=== PATIENT | male | born 1985 | race Caucasian/White ===

== ENCOUNTER 2018-06-27 12:27 | Emergency (ER) | payer OTHER ==
[2018-06-27] MEDS ORDERED: NS 1,000 ML IV ONE (12:58)
--- NOTE | 2018-06-27 12:58 | EDPHY ---
H & P Stated Complaint: Bloating and feeling full after eating x 2 weeks Time Seen by Provider: 06/27/18 12:58 HPI/ROS: HPI CHIEF COMPLAINT: Bloating and postprandial fullness. HISTORY OF PRESENT ILLNESS: 33-year-old male, otherwise healthy without any significant medical history does not take any daily medications presents emergency room with 2 weeks of worsening postprandial fullness. Patient states every time he goes to eat he feels full. He also complains of burning sensation in his epigastric region that rises up into his throat through his chest. He denies vomiting, denies change in his stools. Denies black tarry stools. Denies blood in his stool. Denies fever. Denies chest pain or shortness of breath. This been going on for 2 weeks. No significant abdominal pain but gets full after eating. Past Medical History: Denies medical history Past Surgical History: Appendectomy Social History: Denies drugs alcohol tobacco. and daughter at bedside. Family History: Noncontributory ROS REVIEW OF SYSTEMS: 10 Systems were reviewed and negative with the exception of the elements mentioned in the history of present illness. Exam Constitutional nontoxic. No acute distress, triage nursing summary reviewed, vital signs reviewed, awake/alert. Eyes normal conjunctivae and sclera, EOMI, PERRLA. HENT normal inspection, atraumatic, moist mucus membranes, no epistaxis, neck supple/ no meningismus, no raccoon eyes. Respiratory clear to auscultation bilaterally, normal breath sounds, no respiratory distress, no wheezing. Cardiovascular rate normal, regular rhythm, no murmur, no edema, distal pulses normal. Gastrointestinal soft, non-tender, no rebound, no guarding, normal bowel sounds, no distension, no pulsatile mass. Genitourinary no CVA tenderness. Musculoskeletal no midline vertebral tenderness, full range of motion, no calf swelling, no tenderness of extremities, no meningismus, good pulses, neurovascularly intact. Skin pink, warm, & dry, no rash, skin atraumatic. Neurologic awake, alert and oriented x 3, AAOx3, moves all 4 extremities equally, motor intact, sensory intact, CN II-XII intact, normal cerebellar, normal vision, normal speech. Psychiatric normal mood/affect. Heme/Lymph/Immune no lymphadenopathy. Differential diagnosis includes but is not limited to and in no particular order : GERD, Peptic ulcer disease, gastritis, H pylori ,Bowel obstruction, appendicitis, gallbladder disease, diverticulitis, colitis, enteritis, perforated viscus, gastritis, GERD, esophagitis, urinary tract infection, pyelonephritis, kidney stones Medical Decision Making: Plan for this patient IV establishment with blood draw , IV Pepcid, IV fluid bolus, electrolytes, KUB. Re-evaluate. Re-evaluation: CT scan abdomen pelvis with IV contrast called to me by Dr. Raya. Small hiatal hernia. Constipation. Otherwise unremarkable. Reviewed patient's blood work and CT Scan result patient. Recommend he follows up with GI. Recommend antacid medications. Source: Patient - Personal History Current Tetanus Diphtheria and Acellular Pertussis (TDAP): Yes - Medical/Surgical History Other PMH: healthy - Social History Smoking Status: Never smoked Constitutional: Initial Vital Signs Temperature (C) 36.5 C 06/27/18 12:38 Heart Rate 73 06/27/18 12:38 Respiratory Rate 16 06/27/18 12:38 Blood Pressure 115/83 H 06/27/18 12:38 O2 Sat (%) 98 06/27/18 12:38 O2 Delivery Mode Room Air Allergies/Adverse Reactions: No Known Allergies Allergy (Unverified 06/27/18 12:41) Home Medications: Medication Instructions Recorded Ranitidine HCl [Zantac] 150 mg PO DAILY #14 tablet 06/27/18 Medical Decision Making - Diagnostics Imaging Results: Imaging Impressions Abdomen X-Ray 06/27/18 13:04 Impression: Mild constipation. - Data Points Laboratory Results: Laboratory Results 06/27/18 12:50 06/27/18 12:50 06/27/18 06/27/18 06/27/18 14:16 12:50 12:50 WBC 9.38 10^3/uL 10^3/uL (3.80-9.50) RBC 5.38 10^6/uL 10^6/uL (4.40-6.38) Hgb 16.3 g/dL g/dL (13.7-17.5) Hct 47.4 % % (40.0-51.0) MCV 88.1 fL fL (81.5-99.8) MCH 30.3 pg pg (27.9-34.1) MCHC 34.4 g/dL g/dL (32.4-36.7) RDW 12.5 % % (11.5-15.2) Plt Count 403 10^3/uL H 10^3/uL (150-400) MPV 9.9 fL fL (8.7-11.7) Neut % (Auto) 66.5 % % (39.3-74.2) Lymph % (Auto) 21.6 % % (15.0-45.0) Wheeler % (Auto) 9.0 % % (4.5-13.0) Eos % (Auto) 2.0 % % (0.6-7.6) Baso % (Auto) 0.6 % % (0.3-1.7) Nucleat RBC Rel Count 0.0 % % (0.0-0.2) Absolute Neuts (auto) 6.23 10^3/uL 10^3/uL (1.70-6.50) Absolute Lymphs (auto) 2.03 10^3/uL 10^3/uL (1.00-3.00) Absolute Monos (auto) 0.84 10^3/uL H 10^3/uL (0.30-0.80) Absolute Eos (auto) 0.19 10^3/uL 10^3/uL (0.03-0.40) Absolute Basos (auto) 0.06 10^3/uL 10^3/uL (0.02-0.10) Absolute Nucleated RBC 0.00 10^3/uL 10^3/uL (0-0.01) Immature Gran % 0.3 % % (0.0-1.1) Immature Gran # 0.03 10^3/uL 10^3/uL (0.00-0.10) Sodium 139 mEq/L mEq/L (135-145) Potassium 4.1 mEq/L mEq/L (3.3-5.0) Chloride 106 mEq/L mEq/L (97-110) Carbon Dioxide 23 mEq/l mEq/l (22-31) Anion Gap 10 mEq/L mEq/L (8-16) BUN 16 mg/dL mg/dL (7-23) Creatinine 0.8 mg/dL mg/dL (0.7-1.3) Estimated GFR > 60 Glucose 109 mg/dL H mg/dL (70-100) Calcium 10.0 mg/dL mg/dL (8.5-10.4) Total Bilirubin 0.8 mg/dL mg/dL (0.1-1.4) Conjugated Bilirubin 0.2 mg/dL mg/dL (0.0-0.5) Unconjugated Bilirubin 0.6 mg/dL mg/dL (0.0-1.1) AST 35 IU/L IU/L (17-59) ALT 59 IU/L IU/L (21-72) Alkaline Phosphatase 53 IU/L IU/L (38-126) POC Troponin I 0.00 ng/mL ng/mL (0.00-0.08) Total Protein 8.0 g/dL g/dL (6.3-8.2) Albumin 4.6 g/dL g/dL (3.5-5.0) Lipase 421 IU/L H IU/L (23-300) Medications Given: Discontinued Medications Famotidine (Pepcid) 20 mg IVP EDNOW ONE Stop: 06/27/18 13:05 Last Admin: 06/27/18 13:09 Dose: 20 mg Sodium Chloride (Ns) 1,000 mls @ 0 mls/hr IV EDNOW ONE; Wide Open PRN Reason: Protocol Stop: 06/27/18 12:59 Last Admin: 06/27/18 13:03 Dose: 1,000 mls Point of Care Test Results: Chemistry 06/27/18 14:16 POC Troponin I 0.00 ng/mL ng/mL (0.00-0.08) Departure - Departure Disposition: Home, Routine, Self-Care Clinical Impression: GERD (gastroesophageal reflux disease) Qualifiers: Esophagitis presence: with esophagitis Qualified Code(s): K21.0 - Gastro- esophageal reflux disease with esophagitis Condition: Good Instructions: Gastroesophageal Reflux Disease (ED) Additional Instructions: 1. Stay away from spicy fatty greasy foods. 2. Follow up with Gastroenterology 3. Zantac as prescribed. 4. Return if worse. Referrals: Claribel Michaels MD [Primary Care Provider] - As per Instructions Jb Herman MD, FACG [Medical Doctor] - As per Instructions Prescriptions: Ranitidine HCl [Zantac] 150 mg PO DAILY #14 tablet
[2018-06-27] MEDS ORDERED: FAMOTIDINE 20 MG/2 ML SDV IVP ONE (13:04)
[2018-06-27 13:06] LABS: PLATELET COUNT 403 10^3/uL (150-400)
[2018-06-27] MEDS ORDERED: IOPAMIDOL (ISOVUE-300) 100 ML BTL ONE (15:26)
[2018-06-27 16:54] VITALS: BP 102/85
== END 2018-06-27 17:11 | disposition home or self-care (01) ==
DX: K21.9 Gastro-esophageal reflux disease without esophagitis (principal); K44.9 Diaphragmatic hernia without obstruction or gangrene; K59.00 Constipation, unspecified; E86.9 Volume depletion, unspecified
CPT/HCPCS: 84484-PO; 96374; Q9967